=== PATIENT | female | born 1930 | race Caucasian/White ===

== ENCOUNTER 2018-09-11 12:19 | Outpatient (CLI) | payer MEDICARE ==
--- NOTE | 2018-09-16 09:35 | MMO ---
BILATERAL MAMMOGRAMS: DATE: 09/11/18 HISTORY: Screening mammography. COMPARISON: Multiple outside exams dating back to 09/15/14. FINDINGS: Scattered fibroglandular densities and benign-appearing calcifications. No dominant mass or suspiciou s calcifications. The study was evaluated with the assistance of computer-aided detection. IMPRESSION: BIRADS 1: Negative Suggest routine follow-up. POS: [facility]
== END 2018-09-11 12:20 | disposition home or self-care (01) ==
LOC: SCSMAMMO 12:19
DX: Z12.31 Encounter for screening mammogram for malignant neoplasm of breast (principal)
CPT/HCPCS: 77067

== ENCOUNTER 2019-06-30 13:45 | Outpatient (CLI) | payer MEDICARE ==
--- NOTE | 2019-06-30 14:13 | CT ---
CT HEAD WITHOUT CONTRAST: Date: 06/30/19 COMPARISON: 05/29/19. HISTORY: Fall, trauma, dizziness. TECHNIQUE: Axial CT imaging at 4.5 mm intervals from vertex through skull base without contrast. FINDINGS: The imaged paranasal sinuses/mastoid air cells are well aerated. There is no displaced calvarial frac ture. The prior examination demonstrated significant intraventricular hemorrhage within the left lateral ve ntricle. No intraventricular hemorrhage is evident on this examination. No intracranial hemorrhage, m idline shift, or mass effect. Periventricular hypodense noted, evidence of small vessel disease. IMPRESSION: Interval resolution of previously noted intraventricular hemorrhage. POS: [facility]
== END 2019-06-30 13:46 | disposition home or self-care (01) ==
LOC: TBSIIMAG 13:45
PROVIDERS: ATTEND Surgery
DX: I61.5 Nontraumatic intracerebral hemorrhage, intraventricular (principal)
CPT/HCPCS: 70450